=== PATIENT | male | born 1955 | race Asian ===

== ENCOUNTER 2019-09-05 16:37 | Emergency (ER) | payer OTHER, MEDICAID ==
[~2019-09-05] VITALS: Ht 172.7 cm; Wt 72.6 kg
[2019-09-05 16:40] VITALS: Ht 172.7 cm; Wt 72.6 kg
[2019-09-05 20:31] VITALS: BP 128/68
== END 2019-09-05 20:31 ==
LOC: ED 16:37
DX: L03.116 Cellulitis of left lower limb (principal); I10 Essential (primary) hypertension; E11.9 Type 2 diabetes mellitus without complications
CPT/HCPCS: 82962; J0696; Q0092